=== PATIENT | female | born 1970 | race Caucasian/White ===

== ENCOUNTER 2020-08-08 11:07 | Emergency (ER) | payer OTHER ==
[~2020-08-08] VITALS: Ht 170.2 cm; Wt 68.0 kg
--- NOTE | 2020-08-08 11:07 | NUR ---
PT BIBRA 89 FROM HOME C/O PALPITATIONS AND ANXIETY ATTACK. PT IS AAOX4, NOT IN RESPIRATORY DISTRESS, HOOKED TO RN CRITICAL CARE, KEPT RESTED AND COMFORTABLE. WILL CONTINUE TO MONITOR.
--- NOTE | 2020-08-08 11:15 | NUR ---
PT SEEN AND EXAMINED BY .
--- NOTE | 2020-08-08 11:19 | NUR ---
ER PHLEB AT BEDSIDE FOR BLOOD DRAW.
[2020-08-08] MEDS ORDERED: LORAZEPAM 1 MG TABLET ONE (11:29)
[2020-08-08 11:30] LABS: BASOPHILS # (AUTO) 0.1 /CMM (0.0-0.2); BASOPHILS % (AUTO) 0.9 % (0.0-2.0); EOSINOPHILS % (AUTO) 5.2 % (0.0-6.0); HEMATOCRIT 37 % (33-45); HEMOGLOBIN 12.1 g/dL (11.5-14.8); LYMPHOCYTES # (AUTO) 3.6 /CMM (0.8-4.8); LYMPHOCYTES % (AUTO) 26.9 % (20.0-44.0); MEAN CORPUSCULAR HGB CONC 33 g/dl (31.0-36.0); MEAN CORPUSCULAR VOLUME 91 fL (82-100); MONOCYTES # (AUTO) 1.4 /CMM (0.1-1.30); MONOCYTES % (AUTO) 10.2 % (2.0-12.0); NEUTROPHILS # (AUTO) 7.6 /CMM (1.8-8.9); NEUTROPHILS % (AUTO) 56.8 % (43.0-81.0); PLATELET COUNT (AUTO) 278 /CMM (150-450); RED BLOOD CELL COUNT(AUTO) 4.07 MIL/uL (4.0-5.2); WHITE BLOOD COUNT (AUTO) 13.3 K/uL (4.3-11.0)
[2020-08-08] MEDS ORDERED: LORAZEPAM 1 MG TABLET PO ONE (11:30)
[2020-08-08 11:36] LABS: CREATININE 0.7 mg/dL (0.6-1.3); POTASSIUM 3.3 mmol/L (3.5-5.1)
[2020-08-08] MEDS ORDERED: POTASSIUM CHLORIDE 20 MEQ TAB.PRT.SR PO ONE ×2 (12:18→12:30)
[2020-08-08 13:11] VITALS: BP 145/78
--- NOTE | 2020-08-08 13:12 | NUR ---
Patient does not wish to proceed with medical care recommended by Dr. Gayle. Patient given information related to possible complications, up to and including , which could occur as a result of leaving the hospital at this time. Patient verbalizes understanding of risks involved due to leaving against medical advice. Patient has signed AMA form.
== END 2020-08-08 13:12 | disposition left against medical advice (07) ==
LOC: ER 11:14
DX: F41.9 Anxiety disorder, unspecified (principal); I21.4 Non-ST elevation (NSTEMI) myocardial infarction; R06.02 Shortness of breath; Z20.822 Contact with and (suspected) exposure to COVID-19
CPT/HCPCS: 36415; 71045; 80048; 84484; 85025; 87426; 93005; 99285; C9803